=== PATIENT | female | born 1975 | race Two or more races ===

== ENCOUNTER 2020-01-23 15:34 | Outpatient (CLI) | payer OTHER | END 2020-01-23 16:02 | disposition home or self-care (01) | LOC: MAMO-SONO 15:34 → EDBD 15:34 → MAMO-SONO 16:02 | PROVIDERS: ATTEND Specialist | DX: Z12.31 Encounter for screening mammogram for malignant neoplasm of breast (principal); N63.10 Unspecified lump in the right breast, unspecified quadrant; N63.20 Unspecified lump in the left breast, unspecified quadrant ==

== ENCOUNTER 2020-07-30 09:15 | Outpatient (CLI) | payer OTHER | END 2020-07-30 09:31 | disposition home or self-care (01) | LOC: RAD 09:15 | PROVIDERS: ATTEND Specialist | DX: M43.8X7 Other specified deforming dorsopathies, lumbosacral region (principal); M54.5 Low back pain; R10.84 Generalized abdominal pain ==

== ENCOUNTER 2020-08-06 08:33 | Outpatient (CLI) | payer OTHER | END 2020-08-06 08:54 | disposition home or self-care (01) | LOC: TOM 08:33 | PROVIDERS: ATTEND Specialist | DX: E04.2 Nontoxic multinodular goiter (principal); R10.84 Generalized abdominal pain; M54.89 Other dorsalgia; Z13.29 Encounter for screening for other suspected endocrine disorder ==

== ENCOUNTER 2021-04-23 11:09 | Outpatient (CLI) | payer OTHER | END 2021-04-23 11:16 | disposition home or self-care (01) | LOC: RAD 11:09 | PROVIDERS: ATTEND General Practice | DX: G89.11 Acute pain due to trauma (principal); M54.2 Cervicalgia ==

== ENCOUNTER 2021-04-30 09:51 | Outpatient (CLI) | payer OTHER | END 2021-04-30 10:02 | disposition home or self-care (01) | LOC: SONOGRAMA 09:51 | PROVIDERS: ATTEND Specialist | DX: E04.1 Nontoxic single thyroid nodule (principal) ==

== ENCOUNTER 2021-08-25 07:42 | Outpatient (CLI) | payer OTHER | END 2021-08-25 07:50 | disposition home or self-care (01) | LOC: RAD 07:42 | PROVIDERS: ATTEND General Practice | DX: M54.50 Low back pain, unspecified (principal); G89.29 Other chronic pain; Z00.01 Encounter for general adult medical examination with abnormal findings; Z12.11 Encounter for screening for malignant neoplasm of colon; Z12.31 Encounter for screening mammogram for malignant neoplasm of breast; E03.9 Hypothyroidism, unspecified; Z12.4 Encounter for screening for malignant neoplasm of cervix; Z13.1 Encounter for screening for diabetes mellitus; Z13.220 Encounter for screening for lipoid disorders; Z13.29 Encounter for screening for other suspected endocrine disorder; Z11.3 Encounter for screening for infections with a predominantly sexual mode of transmission; N60.09 Solitary cyst of unspecified breast | CPT/HCPCS: 72148 ==

== ENCOUNTER 2022-02-09 10:21 | Outpatient (CLI) | payer OTHER | END 2022-02-09 10:24 | disposition home or self-care (01) | LOC: MAMO-SONO 10:21 | PROVIDERS: ATTEND Surgery | DX: R92.0 Mammographic microcalcification found on diagnostic imaging of breast (principal); N60.11 Diffuse cystic mastopathy of right breast; N60.12 Diffuse cystic mastopathy of left breast ==

== ENCOUNTER 2022-06-02 10:05 | Outpatient (CLI) | payer OTHER | END 2022-06-02 10:15 | disposition home or self-care (01) | LOC: RAD 10:05 | PROVIDERS: ATTEND General Practice | DX: R05.9 Cough, unspecified (principal) ==

== ENCOUNTER 2023-08-30 11:28 | Outpatient (CLI) | payer OTHER ==
[~2023-08-30 11:28] MED LIST: DICLOFENAC POTA50 MG PO
== END 2023-08-30 11:38 | disposition home or self-care (01) ==
LOC: MAMO-SONO 11:28
PROVIDERS: ATTEND General Practice
DX: N64.9 Disorder of breast, unspecified (principal); Z12.31 Encounter for screening mammogram for malignant neoplasm of breast; Z12.39 Encounter for other screening for malignant neoplasm of breast; N76.0 Acute vaginitis; N77.1 Vaginitis, vulvitis and vulvovaginitis in diseases classified elsewhere; R10.2 Pelvic and perineal pain